=== PATIENT | male | born 1935 | race Two or more races ===

== ENCOUNTER 2025-03-14 14:10 | Inpatient (IN) | payer OTHER ==
[~2025-03-14] VITALS: Ht 172.7 cm; Wt 90.7 kg
[2025-03-14] MEDS ORDERED: ZESTRIL5 MG PO (14:32)
[2025-03-14] MEDS ORDERED: HUMALOG100 UNIT/2 SQ (14:33)
--- NOTE | 2025-03-14 14:33 | NUR ---
PTE LLEGA A LA SURYA DE EMERGENCIA POR SYNCOPE ,PERSONAL DE AMBULANCIA REFIFE QUE SE FUE EN BALNCO Y HYPOTENSO. SE LE DARRIUS S/V Y SE ACOMODA EN CAMA.
--- NOTE | 2025-03-14 14:51 | NUR ---
SE LE REALIZA EKG.
[2025-03-14] MEDS ORDERED: 0.9 % SODIUM CHLORIDE 1,000 ML IV SCH (15:30)
[2025-03-14] MEDS ORDERED: ONDANSETRON HCL 4 MG in 0.9 % SODIUM CHLORIDE 50 ML IV ONE (15:30)
[2025-03-14] MEDS ORDERED: FAMOtidine 10 MG/ML (4ML VIAL) IV PUSH ONE (15:30)
[2025-03-14] MEDS ORDERED: FAMOTIDINE/PF 20 MG/2 ML VIAL ONE (15:47)
--- NOTE | 2025-03-14 16:25 | NUR ---
SE EDUCA A PACIENTE SOBRE TRATAMIENTO MEDICO EL CUAL REFIERE ENTENDER, SE COLECTAN MUESTRAS DE LAB Y SE ADMINISTRA MEDICAMENTOS LAURA ORDEN MEDICA.
[2025-03-14 16:29] LABS: BASO % 0.4 % (0.1-1.2); EOS # 0.03 (0.04-0.54); EOS % 0.2 % (0.7-7.0); LYMPH # 1.20 (1.18-3.74); LYMPH % 8.4 % (19.3-53.1); MEAN PLATELET VOLUME 10.60 fl (9.4-12.4); MONO # 0.50 (0.24-0.82); MONO % 3.5 % (4.7-12.5); NEUT # 12.36 (1.56-6.13); NEUT % 86.9 % (34.0-71.1); RED CELL DISTRIBUTION WIDTH 12.6 % (11.6-14.4)
[2025-03-14 16:58] LABS: INR 1.03
[2025-03-14 17:04] LABS: ALT/SGPT 27.0 U/L (12-78); AST/SGOT 20.0 U/L (15-37); BILIRUBIN TOTAL 0.49 mg/dL (0.3-1.2); BUN CREA RATIO 11.0 (7.0-25.0); CREATININE SERUM 2.41 mg/dL (0.70-1.30); GFR 25.61; GLOBULINA 4.1 G/DL (2.4-3.5); OSMOLALITY SERUM 301.0 MOSM/KG (275-295)
[2025-03-14 17:07] LABS: GLUCOSE FASTING 271.0 mg/dL (65-100)
[2025-03-14] MEDS ORDERED: CEFTRIAXONE SODIUM 2,000 MG in 0.9 % SODIUM CHLORIDE 100 ML IV ONE (17:45)
[2025-03-14] MEDS ORDERED: CEFTRIAXONE SODIUM 2,000 MG VIAL ONE (17:59)
[2025-03-14] MEDS ORDERED: DEXTROSE 50 % IN WATER 0.5 G/ML DISP.SYRIN IV PRN (20:15)
[2025-03-14] MEDS ORDERED: ACETAMINOPHEN 325 MG SUPP.RECT RECTAL PRN (20:15)
[2025-03-14] MEDS ORDERED: INSULIN LISPRO 1,000 UNIT/10 ML UNITS SUBCUTANEO PRN (20:15)
[2025-03-14] MEDS ORDERED: ONDANSETRON HCL 4 MG in 0.9 % SODIUM CHLORIDE 50 ML IV PRN (20:15)
[2025-03-15 07:17] VITALS: BP 113/57
[2025-03-15 07:37] LABS: URINE APPEARANCE Cloudy; URINE BILIRRUBIN Negative (NEGATIVE); URINE BLOOD Moderate; URINE COLOR Yellow; URINE GLUCOSE Negative (NEGATIVE); URINE KETONE Trace (NEGATIVE); URINE LEUKOCYTE Moderate; URINE NITRATE Negative; URINE PROTEIN Trace (NEGATIVE); URINE UROBILINOGEN 0.2 E.U./dl
[2025-03-15 07:38] LABS: URINE BACTERIA 245.9 uL (0.0-1933); URINE CAST 1.61 uL (0.0-1.40); URINE EPITHELIAL CELLS 24.3 uL (0.0-38.8); URINE RBC 38.4 uL (0.0-20.8); URINE WBC 869.0 uL (0.0-23.2)
[2025-03-15 08:00] VITALS: BP 108/65; O2SAT 100
[2025-03-15] MEDS ORDERED: TAMSULOSIN HCL 0.4 MG CAP PO SCH (09:00)
[2025-03-15] MEDS ORDERED: MEMANTINE HCL 5 MG TABLET PO SCH (09:00)
[2025-03-15] MEDS ORDERED: LISINOPRIL 5 MG TABLET PO SCH (09:00)
[2025-03-15] MEDS ORDERED: ENOXAPARIN SODIUM 30 MG/0.3 ML SYRINGE SUBCUTANEO SCH (09:00)
[2025-03-15] MEDS ORDERED: CEFTRIAXONE SODIUM 2,000 MG in 0.9 % SODIUM CHLORIDE 100 ML IV SCH (09:00)
[2025-03-15 09:10] LABS: ERYTHROCYTE SEDIMENTATION RATE 27 mm/hr (0-20)
[2025-03-15 09:11] LABS: BASO % 0.5 % (0.1-1.2); EOS # 0.39 (0.04-0.54); EOS % 3.8 % (0.7-7.0); LYMPH # 3.49 (1.18-3.74); LYMPH % 33.7 % (19.3-53.1); MEAN PLATELET VOLUME 10.60 fl (9.4-12.4); MONO # 0.70 (0.24-0.82); MONO % 6.8 % (4.7-12.5); NEUT # 5.72 (1.56-6.13); NEUT % 55.0 % (34.0-71.1); RED CELL DISTRIBUTION WIDTH 12.3 % (11.6-14.4)
[2025-03-15 09:25] LABS: TYPE CELLS SQUAMOUS; URINE MUCUS SCANT
[2025-03-15 09:59] LABS: BUN CREA RATIO 14.0 (7.0-25.0); CREATININE SERUM 1.99 mg/dL (0.70-1.30); GFR 31.95; GLUCOSE FASTING 108.0 mg/dL (65-100); OSMOLALITY SERUM 296.0 MOSM/KG (275-295)
[2025-03-15] MEDS ORDERED: CEFTRIAXONE SODIUM 2,000 MG VIAL ONE (12:33)
[2025-03-15 13:20] VITALS: BP 117/74; O2SAT 100
[2025-03-15 16:00] VITALS: BP 128/73; O2SAT 95
[2025-03-15] MEDS ORDERED: DONEPEZIL HCL 10 MG TABLET PO SCH (17:00)
[2025-03-15] MEDS ORDERED: ACETAMINOPHEN 325 MG SUPP.RECT RECTAL PRN (17:00)
[2025-03-16 00:45] VITALS: BP 117/67; O2SAT 97
[2025-03-16 01:27] VITALS: BP 131/84; O2SAT 95
[2025-03-16 08:26] VITALS: BP 115/68; O2SAT 95
[2025-03-16] MEDS ORDERED: SODIUM CHLORIDE 0.45 % 1,000 ML IV SCH (11:00)
[2025-03-16 13:25] VITALS: O2SAT 94
[2025-03-16 16:18] VITALS: BP 111/67; O2SAT 96
[2025-03-16 19:18] VITALS: O2SAT 94
[2025-03-17 00:55] VITALS: BP 127/83; O2SAT 96
[2025-03-17 01:00] VITALS: O2SAT 97
[2025-03-17 09:22] VITALS: O2SAT 96
[2025-03-17 13:17] VITALS: O2SAT 96
[2025-03-17 16:55] VITALS: BP 132/72; O2SAT 97
[2025-03-17] MEDS ORDERED: AMINO ACIDS 1 EACH TABLET PO SCH (17:00)
[2025-03-17 21:36] VITALS: O2SAT 96
[2025-03-18] VITALS (9 sets, daily range): BP systolic 111–137; BP diastolic 70–78; O2SAT 90–98
[2025-03-18] MEDS ORDERED: ACETAZOLAMIDE SODIUM 500 MG VIAL IV STA (09:23)
[2025-03-18 18:42] LABS: BASO % 0.4 % (0.1-1.2); EOS # 0.57 (0.04-0.54); EOS % 6.0 % (0.7-7.0); LYMPH # 2.81 (1.18-3.74); LYMPH % 29.7 % (19.3-53.1); MEAN PLATELET VOLUME 11.60 fl (9.4-12.4); MONO # 0.73 (0.24-0.82); MONO % 7.7 % (4.7-12.5); NEUT # 5.27 (1.56-6.13); NEUT % 55.9 % (34.0-71.1); RED CELL DISTRIBUTION WIDTH 12.2 % (11.6-14.4)
[2025-03-18 18:58] LABS: ERYTHROCYTE SEDIMENTATION RATE 39 mm/hr (0-20)
[2025-03-18 21:38] LABS: BUN CREA RATIO 13.0 (7.0-25.0); CREATININE SERUM 1.59 mg/dL (0.70-1.30); GFR 41.39; OSMOLALITY SERUM 294.0 MOSM/KG (275-295)
[2025-03-18 21:54] LABS: GLUCOSE FASTING 245.0 mg/dL (65-100)
[2025-03-19 00:26] VITALS: O2SAT 97
[2025-03-19 01:01] VITALS: BP 120/71; O2SAT 96
[2025-03-19 06:16] LABS: BASO % 0.3 % (0.1-1.2); EOS # 0.29 (0.04-0.54); EOS % 2.7 % (0.7-7.0); LYMPH # 2.95 (1.18-3.74); LYMPH % 27.7 % (19.3-53.1); MEAN PLATELET VOLUME 10.80 fl (9.4-12.4); MONO # 0.65 (0.24-0.82); MONO % 6.1 % (4.7-12.5); NEUT # 6.71 (1.56-6.13); NEUT % 62.9 % (34.0-71.1); RED CELL DISTRIBUTION WIDTH 11.9 % (11.6-14.4)
[2025-03-19 06:54] LABS: ALT/SGPT 26.0 U/L (12-78); AST/SGOT 17.0 U/L (15-37); BILIRUBIN TOTAL 0.3 mg/dL (0.3-1.2); BUN CREA RATIO 14.0 (7.0-25.0); CREATININE SERUM 1.5 mg/dL (0.70-1.30); GFR 44.27; GLOBULINA 3.2 G/DL (2.4-3.5); GLUCOSE FASTING 161.0 mg/dL (65-100); OSMOLALITY SERUM 288.0 MOSM/KG (275-295)
[2025-03-19 06:58] LABS: ERYTHROCYTE SEDIMENTATION RATE 35 mm/hr (0-20)
[2025-03-19 08:44] VITALS: BP 158/71; O2SAT 95
[2025-03-19 10:25] VITALS: O2SAT 95
[2025-03-19 17:58] VITALS: BP 137/70; O2SAT 96
[2025-03-19] MEDS ORDERED: ACETAMINOPHEN 325 MG TABLET PO PRN (20:15)
[2025-03-19 21:49] VITALS: O2SAT 99
[2025-03-20 00:08] VITALS: O2SAT 97
[2025-03-20 00:24] VITALS: BP 130/61; O2SAT 98
[2025-03-20 05:43] VITALS: O2SAT 98
[2025-03-20 11:59] VITALS: BP 167/87; O2SAT 98
[2025-03-20] MEDS ORDERED: TAMS0.4C PO (12:12)
[2025-03-20] MEDS ORDERED: MEMANTINE HCL5 MG PO (12:12)
[2025-03-20] MEDS ORDERED: INTESTINEX680 M2 PO (12:12)
[2025-03-20] MEDS ORDERED: ARICEPT10 MG PO (12:12)
[2025-03-20] MEDS ORDERED: AMOX1TAB5 PO (12:12)
== END 2025-03-20 16:30 | disposition home or self-care (01) | DRG 315 ==
LOC: ER 14:10 → SEC-K 21:35 → SURG 03-15 21:45
PROVIDERS: General Practice; ADMIT Internal Medicine; ATTEND Internal Medicine
PROC: B020ZZZ Computerized Tomography (CT Scan) of Brain (ICD-10-PCS; principal; 2025-03-14)
PROC: B030ZZZ Magnetic Resonance Imaging (MRI) of Brain (ICD-10-PCS; 2025-03-14)
PROC: B345ZZZ Ultrasonography of Bilateral Common Carotid Arteries (ICD-10-PCS; 2025-03-14)
PROC: B348ZZZ Ultrasonography of Bilateral Internal Carotid Arteries (ICD-10-PCS; 2025-03-14)
PROC: B246ZZZ Ultrasonography of Right and Left Heart (ICD-10-PCS; 2025-03-14)
PROC: 4A12X4Z Monitoring of Cardiac Electrical Activity, External Approach (ICD-10-PCS; 2025-03-16)
DX: I95.9 Hypotension, unspecified (principal); E87.0 Hyperosmolality and hypernatremia; N17.9 Acute kidney failure, unspecified; N39.0 Urinary tract infection, site not specified; R55 Syncope and collapse; B95.7 Other staphylococcus as the cause of diseases classified elsewhere; E86.0 Dehydration; G31.89 Other specified degenerative diseases of nervous system; H54.8 Legal blindness, as defined in USA; H35.52 Pigmentary retinal dystrophy; I12.9 Hypertensive chronic kidney disease with stage 1 through stage 4 chronic kidney disease, or unspecified chronic kidney disease; N18.9 Chronic kidney disease, unspecified; G30.8 Other Alzheimer's disease; F02.80 Dementia in other diseases classified elsewhere, unspecified severity, without behavioral disturbance, psychotic disturbance, mood disturbance, and anxiety; F01.50 Vascular dementia, unspecified severity, without behavioral disturbance, psychotic disturbance, mood disturbance, and anxiety; E03.9 Hypothyroidism, unspecified; Z87.891 Personal history of nicotine dependence; Z79.4 Long term (current) use of insulin; Z79.84 Long term (current) use of oral hypoglycemic drugs; Z85.828 Personal history of other malignant neoplasm of skin; Z74.01 Bed confinement status
CPT/HCPCS: 70551